=== PATIENT | female | born 1995 | race Caucasian/White ===

== ENCOUNTER 2018-12-04 00:04 | Emergency (ER) | payer MEDICAID ==
[~2018-12-04] VITALS: Ht 160 cm; Wt 58.0 kg
[2018-12-04] MEDS ORDERED: ONDANSETRON HCL 4MG/2ML INJ IV STA (00:59)
[2018-12-04] MEDS ORDERED: SODIUM CHLORIDE 0.9% 1,000 ML IV ONE (00:59)
[2018-12-04] MEDS ORDERED: MORPHINE SULFATE 4 MG/ML CPJ (NOT FOR IM USE) IV STA (00:59)
[2018-12-04 01:50] LABS: HEMATOCRIT. 41.5 % (36.0-48.0); HEMOGLOBIN. 14.2 g/dL (12.0-16.0); MEAN CORPUSCULAR HEMOGLOBIN 30.1 pg (28.0-32.0); PLATELET 251 x1000/uL (130-400); RED BLOOD CELL COUNT 4.72 mill/uL (4.2-5.4)
[2018-12-04 01:51] LABS: CHLORIDE 105 mEq/L (98-107)
[2018-12-04 01:54] LABS: HCG SCREEN NEGATIVE
[2018-12-04] MEDS ORDERED: MORPHINE SULFATE 10 MG/ML CPJ IV ONE (03:00)
[2018-12-04] MEDS ORDERED: LIDOCAINE HCL/PF 1% 10 MG/ML 5ML VIAL IJ ONE (03:15)
[2018-12-04] MEDS ORDERED: MIDAZOLAM HCL 2 MG/2 ML VIAL IV ONE (03:15)
[2018-12-04] MEDS ORDERED: PROPOFOL 200MG/20ML VIAL IV ONE ×2 (04:14→04:30)
[2018-12-04] MEDS ORDERED: ONDANSETRON HCL 4MG/2ML INJ IV ONE (04:30)
[2018-12-04] MEDS ORDERED: IOHEXOL-300 100 ML BOTTLE ONE (04:38)
[2018-12-04] MEDS ORDERED: FENTANYL CITRATE/PF 50MCG/ML 2ML VIAL IV ONE ×2 (04:45→05:30)
[2018-12-04 05:08] LABS: PLATELET ESTIMATE NORMAL
[2018-12-04 06:14] VITALS: BP 124/62
== END 2018-12-04 06:13 | disposition short-term general hospital (02) ==
LOC: ER 00:04
DX: S27.0XXA Traumatic pneumothorax, initial encounter (principal); R06.03 Acute respiratory distress; S22.42XA Multiple fractures of ribs, left side, initial encounter for closed fracture; W01.10XA Fall on same level from slipping, tripping and stumbling with subsequent striking against unspecified object, initial encounter; Y93.89 Activity, other specified; Y92.89 Other specified places as the place of occurrence of the external cause
CPT/HCPCS: 32551; 36415; 71045; 71260; 73130; 73610; 74177; 80048; 83690; 84703; 85025; 86850; 86900; 86901; 96374; 96375; 96376; 99152; 99291; A4217; J2250; J2270; J2405; J2704; J3010; J3490; J7030; Q9967; Z7610

== ENCOUNTER 2018-12-07 14:03 | Emergency (ER) | payer MEDICAID ==
[~2018-12-07] VITALS: Ht 160 cm; Wt 57.0 kg
[2018-12-07 15:52] LABS: CLARITY URINE CLOUDY (CLEAR); COLOR URINE DARK YELLOW (YELLOW); KETONES URINE TRACE (NEGATIVE); LEUKOCYTE ESTERASE URINE TRACE (NEGATIVE); NITRITE URINE NEGATIVE (NEGATIVE); OCCULT BLOOD URINE NEGATIVE (NEGATIVE); PROTEIN URINE NEGATIVE (NEGATIVE); SPECIFIC GRAVITY URINE 1.027 (1.005-1.030); UROBILINOGEN URINE 0.2 E.U./dL (0.2-1.0)
[2018-12-07] MEDS ORDERED: HYDROCODONE/ACETAMINOPHEN 5/325MG TABLET PO ONE (16:15)
[2018-12-07] MEDS ORDERED: ONDANSETRON 4MG ODT PO ONE (17:15)
[2018-12-07 18:12] VITALS: BP 110/68
== END 2018-12-07 18:14 | disposition home or self-care (01) ==
LOC: ER 14:03
DX: S22.32XA Fracture of one rib, left side, initial encounter for closed fracture (principal); J45.909 Unspecified asthma, uncomplicated; X58.XXXA Exposure to other specified factors, initial encounter; Y93.89 Activity, other specified; Y92.89 Other specified places as the place of occurrence of the external cause; Y99.8 Other external cause status
CPT/HCPCS: 71046; 81003; 81025; 99284; Q0162; Z7610